=== PATIENT | female | born 1960 | race African-American/Black ===

== ENCOUNTER 2019-01-27 09:08 | Inpatient (IN) ==
[2019-01-27] MEDS ORDERED: ERGOCALCIFEROL 50,000 UNIT CAPSULE PO SCH (17:30)
[2019-01-27 18:20] LABS: Basophils # 0.1 10*3/uL (0.0-0.2); Basophils % 0.4 % (0.0-0.8); Eosinophils # 0.1 10*3/uL (0.0-0.87); Eosinophils % 1.2 % (0.00-10.9); Hematocrit 36.1 VOL% (35.7-47.0); Hemoglobin 11.1 GM/DL (12.0-16.0); Immature Granulocytes % 0.6 %; Immature Granulocytes Absolute 0.07 #; Lymphocytes % 17.6 % (21.3-54.2); Mean Corpuscular HGB Conc 30.7 GM/DL (32-36); Mean Corpuscular Volume 89.1 FL (87-102); Mean Platelet Volume 10.2 FL (9.6-12.0); Neutrophils % 71.2 % (38.7-73.9); Platelet Count 449 T/CUMM (130-400); Red Blood Count 4.05 MC/CUMM (3.8-5.5); Red Cell Distribution Width 16.1 % (9.3-17.3); White Blood Count 11.2 T/CUMM (4-12)
[2019-01-27 18:40] LABS: Alanine Aminotransferase 14 U/L (13-56); Albumin 3.6 G/DL (3.4-5.0); Alkaline Phosphatase 156 U/L (45-117); Aspartate Amino Transferase 14 U/L (0-37); Bilirubin,Total < 0.39 MG/DL (0.2-1.0); Blood Urea Nitrogen 17 MG/DL (7-18); Calcium 9.4 MG/DL (8.5-10.1); Glucose 112 MG/DL (74-106); Osmolality,Calculated 275.8 MOS/KG (273-304); Total Protein 8.2 G/DL (6.4-8.3)
[2019-01-27] MEDS ORDERED: FUROSEMIDE 40 MG TABLET PO SCH (21:00)
[2019-01-27] MEDS ORDERED: POTASSIUM CHLORIDE 20 MEQ TABLET PO ONE (21:00)
[2019-01-27] MEDS: ALLOPURINOL 100 MG TABLET PO SCH (22:17)
[2019-01-27] MEDS: ATORVASTATIN 40 MG TABLET PO SCH (22:17)
[2019-01-27] MEDS: CHLORHEXIDINE 0.12% ORAL RINSE 60 ML BOTTLE SWISH/SPIT SCH (22:17)
[2019-01-27] MEDS: GABAPENTIN 300 MG CAPSULE PO SCH (22:17)
[2019-01-27] MEDS: NITROFURANTOIN MACRO/MONO 100 MG CAPSULE PO SCH (22:17)
[2019-01-27] MEDS: traZODone 50 MG TABLET PO SCH (22:17)
[2019-01-27] MEDS: BUDESONIDE/FORMOTEROL 160-4.5 INHALER 6 GM INH SCH (22:39)
[2019-01-27] MEDS: CHLORHEXIDINE 4% SOLN 118 ML BOTTLE TOP SCH (22:40)
[2019-01-28 03:39] LABS: Basophils # 0.1 10*3/uL (0.0-0.2); Basophils % 0.5 % (0.0-0.8); Eosinophils # 0.1 10*3/uL (0.0-0.87); Eosinophils % 1.2 % (0.00-10.9); Hematocrit 36.9 VOL% (35.7-47.0); Hemoglobin 11.9 GM/DL (12.0-16.0); Immature Granulocytes % 0.3 %; Immature Granulocytes Absolute 0.03 #; Lymphocytes # 2.1 10*3/uL (1.4-4.0); Lymphocytes % 23.3 % (21.3-54.2); Mean Corpuscular HGB Conc 32.2 GM/DL (32-36); Mean Corpuscular Volume 87.4 FL (87-102); Mean Platelet Volume 10.6 FL (9.6-12.0); Monocytes % 8.8 % (1.7-12.7); Neutrophils % 65.9 % (38.7-73.9); Platelet Count 431 T/CUMM (130-400); Red Blood Count 4.22 MC/CUMM (3.8-5.5); White Blood Count 9.1 T/CUMM (4-12)
[2019-01-28 04:01] LABS: Albumin 3.6 G/DL (3.4-5.0); Bilirubin,Total 0.5 MG/DL (0.2-1.0); Calcium 9.7 MG/DL (8.5-10.1); Osmolality,Calculated 274.8 MOS/KG (273-304); Total Protein 8.5 G/DL (6.4-8.3)
[2019-01-28] MEDS: hydrALAZINE 20 MG/1 ML VIAL IV PRN ×2 (06:06→15:53)
[2019-01-28] MEDS: FUROSEMIDE 40 MG TABLET PO SCH ×2 (07:38→17:36)
[2019-01-28] MEDS: amLODIPine 10 MG TABLET PO SCH (08:37)
[2019-01-28] MEDS: MONTELUKAST 10 MG TABLET PO SCH (08:37)
[2019-01-28] MEDS: GABAPENTIN 300 MG CAPSULE PO SCH ×2 (08:37→21:05)
[2019-01-28] MEDS: VENLAFAXINE XR 37.5 MG CAPSULE PO SCH (08:37)
[2019-01-28] MEDS: PANTOPRAZOLE 40 MG TABLET PO SCH (08:37)
[2019-01-28] MEDS: NITROFURANTOIN MACRO/MONO 100 MG CAPSULE PO SCH ×2 (08:37→21:05)
[2019-01-28] MEDS: CHLORHEXIDINE 4% SOLN 118 ML BOTTLE TOP SCH ×2 (08:38→14:18)
[2019-01-28] MEDS: CHLORHEXIDINE 0.12% ORAL RINSE 60 ML BOTTLE SWISH/SPIT SCH ×2 (08:38→21:05)
[2019-01-28] MEDS: ALLOPURINOL 100 MG TABLET PO SCH ×2 (08:38→21:06)
[2019-01-28] MEDS: ASPIRIN CHEW 81 MG TABLET PO SCH (08:38)
[2019-01-28] MEDS: BUDESONIDE/FORMOTEROL 160-4.5 INHALER 6 GM INH SCH ×2 (08:39→21:06)
[2019-01-28] MEDS: ENOXAPARIN 40 MG/0.4 ML SYRINGE SUBCUT SCH (11:21)
[2019-01-28] MEDS ORDERED: METOPROLOL SUCCINATE XL 50 MG TABLET PO SCH (11:30)
[2019-01-28] MEDS ORDERED: NITROGLYCERIN SL 0.4 MG TABLET SL PRN (11:39)
[2019-01-28] MEDS: LOSARTAN 25 MG TABLET PO SCH ×2 (14:16→21:05)
[2019-01-28] MEDS ORDERED: POLYETHYLENE GLYCOL POWDER 17 GM PACK PO PRN (14:40)
[2019-01-28] MEDS ORDERED: MAGNESIUM HYDROXIDE SUSP 30 ML UDCUP PO ONE (21:00)
[2019-01-28] MEDS: CARVEDILOL 3.125 MG TABLET PO SCH (21:05)
[2019-01-28] MEDS: traZODone 50 MG TABLET PO SCH (21:05)
[2019-01-28] MEDS: ATORVASTATIN 40 MG TABLET PO SCH (21:05)
[2019-01-28] MEDS: DOCUSATE SODIUM 100 MG CAPSULE PO SCH (21:05)
[2019-01-29 04:49] LABS: Basophils % 0.5 % (0.0-0.8); Eosinophils # 0.1 10*3/uL (0.0-0.87); Eosinophils % 1.1 % (0.00-10.9); Hematocrit 37.6 VOL% (35.7-47.0); Immature Granulocytes % 0.2 %; Immature Granulocytes Absolute 0.01 #; Lymphocytes # 2.5 10*3/uL (1.4-4.0); Lymphocytes % 38.2 % (21.3-54.2); Mean Corpuscular HGB Conc 31.9 GM/DL (32-36); Mean Corpuscular Volume 88.3 FL (87-102); Mean Platelet Volume 10.3 FL (9.6-12.0); Monocytes % 11.8 % (1.7-12.7); Neutrophils % 48.2 % (38.7-73.9); Platelet Count 445 T/CUMM (130-400); Red Blood Count 4.26 MC/CUMM (3.8-5.5); White Blood Count 6.6 T/CUMM (4-12)
[2019-01-29 05:05] LABS: Calcium 10.1 MG/DL (8.5-10.1); Osmolality,Calculated 281.5 MOS/KG (273-304)
[2019-01-29] MEDS: DOCUSATE SODIUM 100 MG CAPSULE PO SCH ×2 (09:04→20:55)
[2019-01-29] MEDS: MONTELUKAST 10 MG TABLET PO SCH (09:04)
[2019-01-29] MEDS: NITROFURANTOIN MACRO/MONO 100 MG CAPSULE PO SCH ×2 (09:04→20:54)
[2019-01-29] MEDS: LOSARTAN 25 MG TABLET PO SCH ×2 (09:04→20:55)
[2019-01-29] MEDS: ALLOPURINOL 100 MG TABLET PO SCH ×2 (09:04→20:54)
[2019-01-29] MEDS: GABAPENTIN 300 MG CAPSULE PO SCH ×2 (09:04→20:55)
[2019-01-29] MEDS: CARVEDILOL 3.125 MG TABLET PO SCH (09:04)
[2019-01-29] MEDS: VENLAFAXINE XR 37.5 MG CAPSULE PO SCH (09:04)
[2019-01-29] MEDS: BUDESONIDE/FORMOTEROL 160-4.5 INHALER 6 GM INH SCH ×2 (09:05→20:53)
[2019-01-29] MEDS: amLODIPine 10 MG TABLET PO SCH (09:05)
[2019-01-29] MEDS: ASPIRIN CHEW 81 MG TABLET PO SCH (09:05)
[2019-01-29] MEDS: PANTOPRAZOLE 40 MG TABLET PO SCH (09:05)
[2019-01-29] MEDS: FUROSEMIDE 40 MG TABLET PO SCH (09:05)
[2019-01-29] MEDS: CHLORHEXIDINE 0.12% ORAL RINSE 60 ML BOTTLE SWISH/SPIT SCH ×2 (09:06→20:56)
[2019-01-29] MEDS: ENOXAPARIN 40 MG/0.4 ML SYRINGE SUBCUT SCH (12:10)
[2019-01-29] MEDS: hydrALAZINE 25 MG TABLET PO SCH ×2 (12:10→20:55)
[2019-01-29] MEDS: NEBIVOLOL 5 MG TABLET PO SCH (20:54)
[2019-01-29] MEDS: ATORVASTATIN 40 MG TABLET PO SCH (20:55)
[2019-01-29] MEDS: traZODone 50 MG TABLET PO SCH (20:55)
[2019-01-30 02:20] LABS: Apearance,Urine CLEAR (Clear); Bilirubin,Urine Negative (Negative); Blood, Urine Negative (Negative); Glucose,Urine (UA) Negative (Negative); Ketones,Urine Negative (Negative); Nitrite,Urine Negative (Negative); Protein,Urine 30 MG/DL; RBC,Urine 3 /HPF (0-4); Squamous Epithelial Cell,Urine Occasional /HPF (0-10); Urine Color Yellow (Yellow); Urine Specific Gravity 1.016 (1.001-1.035); Urine Urobilinogen < 2.0 EU/DL (0.2-1.0); WBC,Urine <1 /HPF (0-6)
[2019-01-30] MEDS: GABAPENTIN 300 MG CAPSULE PO SCH ×2 (08:12→20:33)
[2019-01-30] MEDS: LOSARTAN 25 MG TABLET PO SCH ×2 (08:12→20:34)
[2019-01-30] MEDS: NEBIVOLOL 5 MG TABLET PO SCH ×2 (08:12→20:33)
[2019-01-30] MEDS: NITROFURANTOIN MACRO/MONO 100 MG CAPSULE PO SCH ×2 (08:12→20:33)
[2019-01-30] MEDS: amLODIPine 10 MG TABLET PO SCH (08:12)
[2019-01-30] MEDS: FUROSEMIDE 40 MG/5 ML UDCUP PO SCH (08:12)
[2019-01-30] MEDS: ASPIRIN CHEW 81 MG TABLET PO SCH (08:12)
[2019-01-30] MEDS: VENLAFAXINE XR 37.5 MG CAPSULE PO SCH (08:12)
[2019-01-30] MEDS: hydrALAZINE 25 MG TABLET PO SCH ×3 (08:12→20:33)
[2019-01-30] MEDS: PANTOPRAZOLE 40 MG TABLET PO SCH (08:12)
[2019-01-30] MEDS: ISOSORBIDE DINITRATE 20 MG TABLET PO SCH ×3 (08:12→20:33)
[2019-01-30] MEDS: MONTELUKAST 10 MG TABLET PO SCH (08:12)
[2019-01-30] MEDS: DOCUSATE SODIUM 100 MG CAPSULE PO SCH ×2 (08:12→20:33)
[2019-01-30] MEDS: ALLOPURINOL 100 MG TABLET PO SCH ×2 (08:12→20:33)
[2019-01-30] MEDS: BUDESONIDE/FORMOTEROL 160-4.5 INHALER 6 GM INH SCH ×2 (08:15→20:34)
[2019-01-30] MEDS: CHLORHEXIDINE 0.12% ORAL RINSE 60 ML BOTTLE SWISH/SPIT SCH ×2 (08:16→20:34)
[2019-01-30] MEDS: ENOXAPARIN 40 MG/0.4 ML SYRINGE SUBCUT SCH (10:25)
[2019-01-30] MEDS: ATORVASTATIN 40 MG TABLET PO SCH (20:34)
[2019-01-30] MEDS: traZODone 50 MG TABLET PO SCH (20:34)
[2019-01-31 05:02] LABS: Calcium 9.3 MG/DL (8.5-10.1); Osmolality,Calculated 283.4 MOS/KG (273-304)
[2019-01-31] MEDS: DOCUSATE SODIUM 100 MG CAPSULE PO SCH ×2 (08:49→21:30)
[2019-01-31] MEDS: hydrALAZINE 25 MG TABLET PO SCH ×3 (08:49→21:29)
[2019-01-31] MEDS: NITROFURANTOIN MACRO/MONO 100 MG CAPSULE PO SCH ×2 (08:49→21:29)
[2019-01-31] MEDS: amLODIPine 10 MG TABLET PO SCH (08:49)
[2019-01-31] MEDS: MONTELUKAST 10 MG TABLET PO SCH (08:49)
[2019-01-31] MEDS: LOSARTAN 25 MG TABLET PO SCH ×2 (08:50→21:30)
[2019-01-31] MEDS: FUROSEMIDE 40 MG/5 ML UDCUP PO SCH (08:50)
[2019-01-31] MEDS: ISOSORBIDE DINITRATE 20 MG TABLET PO SCH ×3 (08:50→21:30)
[2019-01-31] MEDS: BUDESONIDE/FORMOTEROL 160-4.5 INHALER 6 GM INH SCH ×2 (08:50→21:30)
[2019-01-31] MEDS: PANTOPRAZOLE 40 MG TABLET PO SCH (08:50)
[2019-01-31] MEDS: GABAPENTIN 300 MG CAPSULE PO SCH ×2 (08:50→21:30)
[2019-01-31] MEDS: ASPIRIN CHEW 81 MG TABLET PO SCH (08:50)
[2019-01-31] MEDS: ALLOPURINOL 100 MG TABLET PO SCH ×2 (08:50→21:36)
[2019-01-31] MEDS: VENLAFAXINE XR 37.5 MG CAPSULE PO SCH (08:50)
[2019-01-31] MEDS: NEBIVOLOL 5 MG TABLET PO SCH ×2 (08:50→21:30)
[2019-01-31] MEDS: CHLORHEXIDINE 0.12% ORAL RINSE 60 ML BOTTLE SWISH/SPIT SCH ×2 (08:51→21:31)
[2019-01-31] MEDS: ENOXAPARIN 40 MG/0.4 ML SYRINGE SUBCUT SCH (11:18)
[2019-01-31] MEDS: CHLORHEXIDINE 4% SOLN 118 ML BOTTLE TOP SCH ×2 (21:28→21:29)
[2019-01-31] MEDS: ATORVASTATIN 40 MG TABLET PO SCH (21:30)
[2019-01-31] MEDS: traZODone 50 MG TABLET PO SCH (21:30)
[2019-02-01 04:21] LABS: Calcium 9.2 MG/DL (8.5-10.1); Osmolality,Calculated 280.5 MOS/KG (273-304)
[2019-02-01] MEDS ORDERED: TISSUE ADHESIVE 1 EACH APPLICATOR TOP ONE (04:52)
[2019-02-01] MEDS ORDERED: PAPAVERINE 60 MG/2 ML VIAL ONE (04:52)
[2019-02-01] MEDS ORDERED: VANCOMYCIN 1,000 MG VIAL ONE (04:53)
[2019-02-01] MEDS ORDERED: LORazepam 1 MG TABLET PO ONE (05:00)
[2019-02-01] MEDS: CHLORHEXIDINE 4% SOLN 118 ML BOTTLE TOP SCH (05:03)
[2019-02-01] MEDS: hydrALAZINE 25 MG TABLET PO SCH ×2 (05:32→08:03)
[2019-02-01] MEDS: ISOSORBIDE DINITRATE 20 MG TABLET PO SCH ×2 (05:33→08:03)
[2019-02-01] MEDS: amLODIPine 10 MG TABLET PO SCH ×2 (05:33→08:03)
[2019-02-01] MEDS: LOSARTAN 25 MG TABLET PO SCH ×2 (05:33→08:03)
[2019-02-01] MEDS ORDERED: CEFUROXIME INJ 1,500 MG in SYRINGE 1 EACH IV ONE (06:00)
[2019-02-01] MEDS ORDERED: PHENYLEPHRINE DRIP 20 MG/250 ML PREMIX IV ONE (06:25)
[2019-02-01] MEDS ORDERED: HEPARIN/NACL 0.9% 2 UNITS/ML 500 ML IV ONE (06:25)
[2019-02-01] MEDS ORDERED: MIDAZOLAM 10 MG/2 ML VIAL ONE (06:26)
[2019-02-01] MEDS ORDERED: NITROGLYCERIN DRIP 50 MG/250 ML BOTTLE IV ONE (06:26)
[2019-02-01] MEDS ORDERED: SODIUM BICARBONATE 50 MEQ/50 ML VIAL IV ONE ×2 (07:25→10:51)
[2019-02-01] MEDS ORDERED: POTASSIUM CHLORIDE RIDER 100 ML IV ONE (07:25)
[2019-02-01] MEDS ORDERED: CALCIUM CHLORIDE 1,000 MG/10 ML SYRINGE IV ONE (07:25)
[2019-02-01] MEDS ORDERED: NITROPRUSSIDE 50 MG/2 ML VIAL ONE (07:25)
[2019-02-01] MEDS ORDERED: PHENYLEPHRINE DRIP 40 MG/250 ML PREMIX IV ONE (07:25)
[2019-02-01] MEDS ORDERED: EPINEPHrine 1 MG/10 ML SYRINGE ONE (07:26)
[2019-02-01] MEDS ORDERED: ALBUMIN 5% 12.5 GM/250 ML VIAL IV ONE ×3 (07:26→19:20)
[2019-02-01 07:53] LABS: ABG Base Excess 0.6 MMOL/L (-2.5-2.5); ABG Oxygen Saturation 99.9 % (95-100); ABG PCO2 33.9 MM HG (35-48); ABG PH 7.459 (7.35-7.45); ABG TCO2 22.2 MMOL/L (23-27); Glucose Heart Surgery 110 MG/DL (74-106); Hematocrit Heart Surgery 27.4 PERCENT (37-47); Hemoglobin Heart Surgery 8.8 G/DL (12.0-16.0); Ionized Calcium Arterial 1.18 MMOL/L (1.21-1.46); PCO2 Patient Temp Arterial 33.9 MMHG; PH Patient Temp Arterial 7.459; Patient Temperature 37 CELCIUS; Potassium Heart/CVR 3.7 MMOL/L (3.5-5.1); Sodium Heart/CVR 137 MMOL/L (135-145)
[2019-02-01] MEDS: CHLORHEXIDINE 0.12% ORAL RINSE 60 ML BOTTLE SWISH/SPIT SCH ×2 (08:03→20:41)
[2019-02-01] MEDS: NITROFURANTOIN MACRO/MONO 100 MG CAPSULE PO SCH (08:03)
[2019-02-01] MEDS: VENLAFAXINE XR 37.5 MG CAPSULE PO SCH (08:03)
[2019-02-01] MEDS: ASPIRIN CHEW 81 MG TABLET PO SCH (08:03)
[2019-02-01] MEDS: DOCUSATE SODIUM 100 MG CAPSULE PO SCH (08:03)
[2019-02-01] MEDS: FUROSEMIDE 40 MG/5 ML UDCUP PO SCH (08:03)
[2019-02-01] MEDS: GABAPENTIN 300 MG CAPSULE PO SCH (08:03)
[2019-02-01] MEDS: NEBIVOLOL 5 MG TABLET PO SCH (08:03)
[2019-02-01] MEDS: MONTELUKAST 10 MG TABLET PO SCH (08:04)
[2019-02-01] MEDS: PANTOPRAZOLE 40 MG TABLET PO SCH (08:04)
[2019-02-01] MEDS: BUDESONIDE/FORMOTEROL 160-4.5 INHALER 6 GM INH SCH (08:04)
[2019-02-01] MEDS: ALLOPURINOL 100 MG TABLET PO SCH (08:04)
[2019-02-01 08:38] LABS: Apearance,Urine CLEAR (Clear); Bilirubin,Urine Negative (Negative); Blood, Urine Moderate mg/dL (Negative); Glucose,Urine (UA) Negative (Negative); Ketones,Urine Negative (Negative); Nitrite,Urine Negative (Negative); Protein,Urine 30 MG/DL; RBC,Urine 1 /HPF (0-4); Urine Color Yellow (Yellow); Urine Specific Gravity 1.016 (1.001-1.035); Urine Urobilinogen < 2.0 EU/DL (0.2-1.0); WBC,Urine <1 /HPF (0-6)
[2019-02-01 09:08] LABS: PCO2 Patient Temp Venous 32.8 MM HG; PH Patient Temp Venous 7.493; PO2 Patient Temp Venous 34.1 MM HG; Potassium Heart/CVR 4.7 MMOL/L (3.5-5.1); VBG Oxygen Saturation 73.9 %; VBG PCO2 34.4 MMHG (41-51); VBG PH 7.478; VBG PO2 36.5 MMHG (17-40)
[2019-02-01 09:09] LABS: Hematocrit Heart Surgery 16.5 PERCENT (37-47); Hemoglobin Heart Surgery 5.2 G/DL (12.0-16.0)
[2019-02-01 09:38] LABS: Hematocrit Heart Surgery 23.7 PERCENT (37-47); Hemoglobin Heart Surgery 7.6 G/DL (12.0-16.0); PCO2 Patient Temp Venous 30.5 MM HG; PH Patient Temp Venous 7.478; PO2 Patient Temp Venous 35.4 MM HG; Potassium Heart/CVR 4.4 MMOL/L (3.5-5.1); VBG Base Excess -0.4 MEQ/L (0-4); VBG HCO3 23.9 MEQ/L (24-28); VBG Oxygen Saturation 83.9 %; VBG PCO2 35.2 MMHG (41-51); VBG PH 7.434; VBG PO2 43.6 MMHG (17-40)
[2019-02-01 10:08] LABS: Hematocrit Heart Surgery 25.4 PERCENT (37-47); Hemoglobin Heart Surgery 8.2 G/DL (12.0-16.0); PCO2 Patient Temp Venous 28.3 MM HG; PH Patient Temp Venous 7.502; PO2 Patient Temp Venous 31.6 MM HG; Potassium Heart/CVR 4.3 MMOL/L (3.5-5.1); VBG Base Excess -0.3 MEQ/L (0-4); VBG HCO3 23.9 MEQ/L (24-28); VBG Oxygen Saturation 78.5 %; VBG PCO2 32.7 MMHG (41-51); VBG PH 7.457
[2019-02-01] MEDS ORDERED: DEXTROSE 5% KCL 20 MEQ 20 MEQ/1,000 ML BAG IV ONE (10:51)
[2019-02-01] MEDS ORDERED: methylPREDNISolone SOD SUC 1,000 MG/8 ML VIAL ONE (10:51)
[2019-02-01] MEDS ORDERED: MAGNESIUM SULFATE 5 GM/10 ML VIAL IV ONE (10:51)
[2019-02-01] MEDS ORDERED: HEPARIN 10,000 UNIT/10 ML VIAL ONE ×3 (10:51→12:20)
[2019-02-01] MEDS ORDERED: MANNITOL 100 GM/500 ML BAG IV ONE (10:51)
[2019-02-01] MEDS ORDERED: ALBUMIN 25% 25 GM/100 ML VIAL IV ONE (10:51)
[2019-02-01] MEDS ORDERED: PROTAMINE SULFATE 50 MG/5 ML VIAL IV ONE (10:52)
[2019-02-01] MEDS ORDERED: FUROSEMIDE 20 MG/2 ML VIAL ONE (10:52)
[2019-02-01] MEDS ORDERED: THROMBIN TOPICAL (RECOMBINANT) 5,000 UNIT VIAL TOP ONE (10:56)
[2019-02-01 11:03] LABS: ABG Base Excess -3.8 MMOL/L (-2.5-2.5); ABG HCO3 21.3 MMOL/L (20-26); ABG PCO2 27.4 MM HG (35-48); ABG PH 7.451 (7.35-7.45); ABG TCO2 17.4 MMOL/L (23-27); Glucose Heart Surgery 216 MG/DL (74-106); Hematocrit Heart Surgery 30.6 PERCENT (37-47); Hemoglobin Heart Surgery 9.9 G/DL (12.0-16.0); Ionized Calcium Arterial 1.39 MMOL/L (1.21-1.46); PCO2 Patient Temp Arterial 27.4 MMHG; PH Patient Temp Arterial 7.451; Patient Temperature 37 CELCIUS; Potassium Heart/CVR 3.8 MMOL/L (3.5-5.1); Sodium Heart/CVR 131 MMOL/L (135-145)
[2019-02-01] MEDS ORDERED: EPINEPHrine 1 MG/ML VIAL ONE (12:20)
[2019-02-01] MEDS ORDERED: ePHEDrine 50 MG/ML AMP ONE (12:20)
[2019-02-01] MEDS ORDERED: MINERAL OIL/PETROLATUM OPH OINT 3.5 GM TUBE ONE (12:20)
[2019-02-01] MEDS ORDERED: CALCIUM CHLORIDE 1,000 MG/10 ML VIAL IV ONE (12:20)
[2019-02-01] MEDS ORDERED: ETOMIDATE 40 MG/20 ML VIAL IV ONE (12:21)
[2019-02-01] MEDS ORDERED: LACTATED RINGERS 2,000 ML IV ONE (12:21)
[2019-02-01] MEDS ORDERED: ROCURONIUM 100 MG/10 ML VIAL IV ONE (12:21)
[2019-02-01] MEDS ORDERED: SODIUM CHLORIDE 0.9% 1,000 ML IV ONE (12:21)
[2019-02-01] MEDS ORDERED: SODIUM CHLORIDE 0.9% 250 ML IV ONE (12:21)
[2019-02-01] MEDS ORDERED: SEVOFLURANE 1 UNIT/15 MINUTE INH ONE (12:22)
[2019-02-01] MEDS ORDERED: AMINOCAPROIC ACID 5,000 MG/20 ML VIAL ONE (12:22)
[2019-02-01] MEDS: ENOXAPARIN 40 MG/0.4 ML SYRINGE SUBCUT SCH (12:26)
[2019-02-01] MEDS ORDERED: CALCIUM CHLORIDE 1,000 MG/10 ML SYRINGE IV PRN (12:33)
[2019-02-01] MEDS ORDERED: POTASSIUM CHLORIDE RIDER 10 MEQ in PREMIX 1 EACH IV PRN (12:33)
[2019-02-01] MEDS ORDERED: ACETAMINOPHEN 650 MG SUPP RECTAL PRN (12:33)
[2019-02-01] MEDS ORDERED: MAGNESIUM SULF RIDER 4 GM in PREMIX 1 EACH IV PRN (12:33)
[2019-02-01] MEDS ORDERED: CHLORHEXIDINE 4% SOLN 118 ML BOTTLE TOP PRN (12:33)
[2019-02-01] MEDS ORDERED: DEXTROSE 50% 25 GM/50 ML VIAL IV PRN ×2 (12:33)
[2019-02-01] MEDS ORDERED: INSULIN REGULAR 100 UNIT/ML IV PRN (12:33)
[2019-02-01] MEDS ORDERED: ONDANSETRON 4 MG/2 ML VIAL IV PRN (12:33)
[2019-02-01] MEDS ORDERED: SODIUM CHLORIDE 0.9% 250 ML IV PRN (12:33)
[2019-02-01] MEDS ORDERED: MIDAZOLAM 2 MG/2 ML VIAL IV PRN (12:33)
[2019-02-01 12:38] LABS: ABG Base Excess -1.7 MMOL/L (-2.5-2.5); ABG HCO3 22.9 MMOL/L (20-26); ABG Oxygen Saturation 96.6 % (95-100); ABG PCO2 41.5 MM HG (35-48); ABG PH 7.363 (7.35-7.45); ABG PO2 87.5 MM HG (80-95); Glucose Heart Surgery 170 MG/DL (74-106); Hematocrit Heart Surgery 36.4 PERCENT (37-47); Hemoglobin Heart Surgery 11.8 G/DL (12.0-16.0); Potassium Heart/CVR 3.6 MMOL/L (3.5-5.1)
[2019-02-01] MEDS ORDERED: SODIUM CHLORIDE 0.9% 1,000 ML IV PRN (12:41)
[2019-02-01] MEDS: SODIUM CHLORIDE 0.45% 1,000 ML IV SCH ×2 (12:42)
[2019-02-01 12:43] LABS: Basophils # 0.1 10*3/uL (0.0-0.2); Basophils % 0.4 % (0.0-0.8); Eosinophils % 0.2 % (0.00-10.9); Hematocrit 35.9 VOL% (35.7-47.0); Hemoglobin 11.3 GM/DL (12.0-16.0); Immature Granulocytes % 0.7 %; Lymphocytes # 0.9 10*3/uL (1.4-4.0); Lymphocytes % 6.4 % (21.3-54.2); Mean Corpuscular HGB Conc 31.5 GM/DL (32-36); Mean Corpuscular Volume 90.7 FL (87-102); Mean Platelet Volume 9.9 FL (9.6-12.0); Monocytes % 5.5 % (1.7-12.7); Neutrophils % 86.8 % (38.7-73.9); Platelet Count 318 T/CUMM (130-400); Red Blood Count 3.96 MC/CUMM (3.8-5.5); Red Cell Distribution Width 15.1 % (9.3-17.3); White Blood Count 14.3 T/CUMM (4-12)
[2019-02-01] MEDS: POTASSIUM CHLORIDE RIDER 20 MEQ in PREMIX 1 EACH IV PRN (12:43)
[2019-02-01] MEDS ORDERED: NITROGLYCERIN DRIP 50 MG/250 ML BOTTLE IV PRN (12:44)
[2019-02-01 12:48] LABS: INR 0.9; PT Patient Result 10.2 SECS; Partial Thromboplastin Time 26.8 SECS (0-40)
[2019-02-01] MEDS ORDERED: INSULIN REGULAR DRIP 100 ML IV SCH (13:00)
[2019-02-01 13:09] LABS: Blood Urea Nitrogen 18 MG/DL (7-18); Calcium 10.3 MG/DL (8.5-10.1); Glucose 167 MG/DL (74-106)
[2019-02-01] MEDS ORDERED: ASPIRIN 325 MG TABLET PO ONE (13:15)
[2019-02-01] MEDS: ALBUMIN 5% 12.5 GM in PREMIX 1 EACH IV PRN ×3 (14:07→19:21)
[2019-02-01] MEDS: CEFUROXIME INJ 1,500 MG in SYRINGE 1 EACH IV SCH (20:30)
[2019-02-01] MEDS: MORPHINE 4 MG/1 ML VIAL IV PRN (21:52)
[2019-02-02] MEDS: MORPHINE 10 MG/1 ML VIAL IV PRN ×2 (00:13→08:07)
[2019-02-02] MEDS: SODIUM CHLORIDE 0.45% 1,000 ML IV SCH ×2 (01:20→09:41)
[2019-02-02 03:11] LABS: ABG Base Excess -5.8 MMOL/L (-2.5-2.5); ABG HCO3 19.5 MMOL/L (20-26); ABG Oxygen Saturation 93.4 % (95-100); ABG PH 7.307 (7.35-7.45); ABG PO2 72.5 MM HG (80-95); ABG TCO2 18.8 MMOL/L (23-27); Glucose Heart Surgery 136 MG/DL (74-106); Hematocrit Heart Surgery 25.8 PERCENT (37-47); Hemoglobin Heart Surgery 8.3 G/DL (12.0-16.0); Potassium Heart/CVR 4.1 MMOL/L (3.5-5.1)
[2019-02-02] MEDS ORDERED: FUROSEMIDE 40 MG/4 ML VIAL IV ONE (03:15)
[2019-02-02] MEDS ORDERED: SODIUM BICARBONATE 50 MEQ/50 ML VIAL IV ONE (03:15)
[2019-02-02] MEDS: ALBUTEROL/IPRATROPIUM 3 ML NEB RESP TX SCH ×6 (03:50→23:50)
[2019-02-02 04:27] LABS: Basophils % 0.1 % (0.0-0.8); Hemoglobin 8.2 GM/DL (12.0-16.0); Immature Granulocytes % 0.6 %; Lymphocytes # 0.7 10*3/uL (1.4-4.0); Lymphocytes % 4.2 % (21.3-54.2); Mean Corpuscular HGB Conc 31.5 GM/DL (32-36); Mean Corpuscular Volume 92.5 FL (87-102); Mean Platelet Volume 10.7 FL (9.6-12.0); Neutrophils % 89.1 % (38.7-73.9); Platelet Count 233 T/CUMM (130-400); Red Blood Count 2.81 MC/CUMM (3.8-5.5); White Blood Count 17.6 T/CUMM (4-12)
[2019-02-02 04:45] LABS: Calcium 8.9 MG/DL (8.5-10.1); Osmolality,Calculated 284.4 MOS/KG (273-304)
[2019-02-02] MEDS: POTASSIUM CHLORIDE RIDER 20 MEQ in PREMIX 1 EACH IV PRN (05:04)
[2019-02-02 05:21] LABS: Lymphocytes 2 % (20-55); Platelet Estimate Adequate; Polychromasia Few; Segmented Neutrophils 96 % (50-85); Total Cells Counted 100
[2019-02-02] MEDS: MORPHINE 4 MG/1 ML VIAL IV PRN ×2 (08:07→10:49)
[2019-02-02] MEDS: FUROSEMIDE 40 MG TABLET PO SCH (08:33)
[2019-02-02] MEDS: MAGNESIUM SULF RIDER 2 GM in PREMIX 1 EACH IV PRN (08:33)
[2019-02-02] MEDS: CHLORHEXIDINE 0.12% ORAL RINSE 60 ML BOTTLE SWISH/SPIT SCH ×2 (08:33→20:08)
[2019-02-02] MEDS: CEFUROXIME INJ 1,500 MG in SYRINGE 1 EACH IV SCH ×2 (08:34→20:08)
[2019-02-02] MEDS: ASPIRIN EC 325 MG TABLET PO SCH (08:34)
[2019-02-02] MEDS: LANSOPRAZOLE ODT 30 MG TABLET PER TUBE SCH (08:34)
[2019-02-02] MEDS: CLOPIDOGREL 75 MG TABLET PO SCH (09:55)
[2019-02-02] MEDS: methylPREDNISolone SOD SUC 40 MG/1 ML VIAL IV SCH ×2 (11:53→20:07)
[2019-02-02 11:54] LABS: ABG Base Excess -3.3 MMOL/L (-2.5-2.5); ABG HCO3 21.6 MMOL/L (20-26); ABG Oxygen Saturation 93.8 % (95-100); ABG PCO2 34.1 MM HG (35-48); ABG PH 7.396 (7.35-7.45); ABG PO2 68.4 MM HG (80-95); ABG TCO2 19.3 MMOL/L (23-27); Glucose Heart Surgery 126 MG/DL (74-106); Potassium Heart/CVR 4.4 MMOL/L (3.5-5.1)
[2019-02-02 11:55] LABS: Hematocrit Heart Surgery 28.8 PERCENT (37-47); Hemoglobin Heart Surgery 9.3 G/DL (12.0-16.0)
[2019-02-02] MEDS: BUDESONIDE/FORMOTEROL 80-4.5 INHALER 6.9 GM INH SCH ×2 (12:14→20:08)
[2019-02-02] MEDS: INSULIN REGULAR 100 UNIT/ML SUBCUT SCH ×3 (17:33→23:31)
[2019-02-02] MEDS: ATORVASTATIN 40 MG TABLET PO SCH (20:07)
[2019-02-03] MEDS: ALBUTEROL/IPRATROPIUM 3 ML NEB RESP TX SCH ×6 (04:10→23:18)
[2019-02-03] MEDS: methylPREDNISolone SOD SUC 40 MG/1 ML VIAL IV SCH ×3 (04:55→20:56)
[2019-02-03] MEDS: INSULIN REGULAR 100 UNIT/ML SUBCUT SCH ×5 (04:56→20:56)
[2019-02-03 04:58] LABS: Basophils % 0.1 % (0.0-0.8); Hematocrit 29.6 VOL% (35.7-47.0); Hemoglobin 9.6 GM/DL (12.0-16.0); Immature Granulocytes % 0.9 %; Immature Granulocytes Absolute 0.19 #; Lymphocytes # 0.9 10*3/uL (1.4-4.0); Mean Corpuscular HGB Conc 32.4 GM/DL (32-36); Mean Corpuscular Volume 90.2 FL (87-102); Mean Platelet Volume 11.1 FL (9.6-12.0); Monocytes % 6.6 % (1.7-12.7); Neutrophils % 88.4 % (38.7-73.9); Platelet Count 245 T/CUMM (130-400); Red Blood Count 3.28 MC/CUMM (3.8-5.5); Red Cell Distribution Width 15.9 % (9.3-17.3); White Blood Count 21.4 T/CUMM (4-12)
[2019-02-03 05:43] LABS: Calcium 8.9 MG/DL (8.5-10.1); Osmolality,Calculated 280.8 MOS/KG (273-304)
[2019-02-03 06:04] LABS: Anisocytosis Slight; Band Neutrophils 3 % (0-10); Eosinophils 1 % (0-10); Hypochromasia 2+; Lymphocytes 4 % (20-55); Macrocytosis Slight; Platelet Estimate Normal; Polychromasia 2+; Segmented Neutrophils 85 % (50-85); Total Cells Counted 100
[2019-02-03] MEDS ORDERED: FUROSEMIDE 40 MG/4 ML VIAL IV STA (06:57)
[2019-02-03] MEDS: MORPHINE 4 MG/1 ML VIAL IV PRN ×2 (08:35→16:57)
[2019-02-03] MEDS: CARVEDILOL 3.125 MG TABLET PO SCH ×2 (09:15→20:56)
[2019-02-03] MEDS: FUROSEMIDE 40 MG TABLET PO SCH (09:16)
[2019-02-03] MEDS: CLOPIDOGREL 75 MG TABLET PO SCH (09:16)
[2019-02-03] MEDS: LANSOPRAZOLE ODT 30 MG TABLET PER TUBE SCH (09:17)
[2019-02-03] MEDS: BUDESONIDE/FORMOTEROL 80-4.5 INHALER 6.9 GM INH SCH ×2 (09:17→20:57)
[2019-02-03] MEDS: ASPIRIN EC 325 MG TABLET PO SCH (09:17)
[2019-02-03] MEDS: CHLORHEXIDINE 0.12% ORAL RINSE 60 ML BOTTLE SWISH/SPIT SCH ×2 (09:17→20:57)
[2019-02-03] MEDS ORDERED: CLOPIDOGREL 75 MG TABLET PO SCH (10:00)
[2019-02-03] MEDS ORDERED: hydrALAZINE 20 MG/1 ML VIAL ONE (10:30)
[2019-02-03] MEDS ORDERED: hydrALAZINE 20 MG/1 ML VIAL IV ONE (10:40)
[2019-02-03] MEDS ORDERED: LEVOFLOXACIN INJ 750 MG in PREMIX 1 EACH IV SCH (12:00)
[2019-02-03] MEDS ORDERED: FUROSEMIDE 40 MG/4 ML VIAL IV ONE (12:40)
[2019-02-03] MEDS: amLODIPine 10 MG TABLET PO SCH (14:29)
[2019-02-03] MEDS: ATORVASTATIN 40 MG TABLET PO SCH (20:57)
[2019-02-04] MEDS: ALBUTEROL/IPRATROPIUM 3 ML NEB RESP TX SCH ×6 (03:09→22:48)
[2019-02-04 04:38] LABS: Basophils % 0.2 % (0.0-0.8); Hematocrit 30.5 VOL% (35.7-47.0); Hemoglobin 9.5 GM/DL (12.0-16.0); Immature Granulocytes % 0.6 %; Immature Granulocytes Absolute 0.12 #; Lymphocytes # 0.5 10*3/uL (1.4-4.0); Lymphocytes % 2.9 % (21.3-54.2); Mean Corpuscular HGB Conc 31.1 GM/DL (32-36); Mean Corpuscular Volume 91.9 FL (87-102); Mean Platelet Volume 11.3 FL (9.6-12.0); Monocytes % 3.8 % (1.7-12.7); Neutrophils % 92.5 % (38.7-73.9); Platelet Count 255 T/CUMM (130-400); Red Blood Count 3.32 MC/CUMM (3.8-5.5); Red Cell Distribution Width 15.7 % (9.3-17.3); White Blood Count 18.8 T/CUMM (4-12)
[2019-02-04 04:41] LABS: Calcium 9.3 MG/DL (8.5-10.1); Osmolality,Calculated 282.7 MOS/KG (273-304)
[2019-02-04 05:13] LABS: Band Neutrophils 1 % (0-10); Lymphocytes 3 % (20-55); Segmented Neutrophils 92 % (50-85)
[2019-02-04 05:14] LABS: Hypochromasia 1+; Platelet Estimate Normal; Polychromasia Few; Total Cells Counted 100
[2019-02-04] MEDS: methylPREDNISolone SOD SUC 40 MG/1 ML VIAL IV SCH ×3 (05:35→20:51)
[2019-02-04] MEDS: ASPIRIN EC 325 MG TABLET PO SCH (08:49)
[2019-02-04] MEDS: CARVEDILOL 3.125 MG TABLET PO SCH (08:49)
[2019-02-04] MEDS: amLODIPine 10 MG TABLET PO SCH (08:49)
[2019-02-04] MEDS: CLOPIDOGREL 75 MG TABLET PO SCH (08:49)
[2019-02-04] MEDS: INSULIN REGULAR 100 UNIT/ML SUBCUT SCH ×4 (08:49→20:52)
[2019-02-04] MEDS: FUROSEMIDE 40 MG TABLET PO SCH (08:50)
[2019-02-04] MEDS: LANSOPRAZOLE ODT 30 MG TABLET PER TUBE SCH (08:50)
[2019-02-04] MEDS: CHLORHEXIDINE 0.12% ORAL RINSE 60 ML BOTTLE SWISH/SPIT SCH ×2 (08:53→20:52)
[2019-02-04] MEDS: BUDESONIDE/FORMOTEROL 80-4.5 INHALER 6.9 GM INH SCH ×2 (08:53→20:52)
[2019-02-04] MEDS: ATORVASTATIN 40 MG TABLET PO SCH (20:51)
[2019-02-04] MEDS: CARVEDILOL 6.25 MG TABLET PO SCH (20:51)
[2019-02-05] MEDS: ALBUTEROL/IPRATROPIUM 3 ML NEB RESP TX SCH ×6 (03:06→23:18)
[2019-02-05 04:36] LABS: Basophils % 0.1 % (0.0-0.8); Hematocrit 29.5 VOL% (35.7-47.0); Hemoglobin 9.3 GM/DL (12.0-16.0); Immature Granulocytes % 0.6 %; Immature Granulocytes Absolute 0.11 #; Lymphocytes # 0.6 10*3/uL (1.4-4.0); Lymphocytes % 3.2 % (21.3-54.2); Mean Corpuscular HGB Conc 31.5 GM/DL (32-36); Mean Corpuscular Volume 90.8 FL (87-102); Monocytes % 4.1 % (1.7-12.7); NRBC # 0.02 10*3/uL; Platelet Count 270 T/CUMM (130-400); Red Blood Count 3.25 MC/CUMM (3.8-5.5); Red Cell Distribution Width 15.6 % (9.3-17.3); White Blood Count 17.5 T/CUMM (4-12)
[2019-02-05] MEDS: methylPREDNISolone SOD SUC 40 MG/1 ML VIAL IV SCH ×3 (04:40→22:12)
[2019-02-05 05:00] LABS: Calcium 9.3 MG/DL (8.5-10.1); Osmolality,Calculated 287.4 MOS/KG (273-304)
[2019-02-05 06:07] LABS: Anisocytosis 1+; Lymphocytes 2 % (20-55); Segmented Neutrophils 96 % (50-85); Total Cells Counted 100
[2019-02-05 06:09] LABS: Platelet Estimate Normal; Polychromasia Slight
[2019-02-05 06:10] LABS: Microcytosis 1+
[2019-02-05] MEDS: FUROSEMIDE 40 MG TABLET PO SCH (09:22)
[2019-02-05] MEDS: LANSOPRAZOLE ODT 30 MG TABLET PER TUBE SCH (09:22)
[2019-02-05] MEDS: amLODIPine 10 MG TABLET PO SCH (09:22)
[2019-02-05] MEDS: CARVEDILOL 6.25 MG TABLET PO SCH ×2 (09:23→22:07)
[2019-02-05] MEDS: CHLORHEXIDINE 0.12% ORAL RINSE 60 ML BOTTLE SWISH/SPIT SCH ×2 (09:24→22:14)
[2019-02-05] MEDS: ASPIRIN EC 325 MG TABLET PO SCH (09:24)
[2019-02-05] MEDS: BUDESONIDE/FORMOTEROL 80-4.5 INHALER 6.9 GM INH SCH ×2 (09:24→22:13)
[2019-02-05] MEDS: CLOPIDOGREL 75 MG TABLET PO SCH (09:24)
[2019-02-05] MEDS: INSULIN REGULAR 100 UNIT/ML SUBCUT SCH ×4 (09:26→22:22)
[2019-02-05] MEDS: LEVOFLOXACIN 750 MG TABLET PO SCH (11:19)
[2019-02-05] MEDS ORDERED: LEVOFLOXACIN INJ 750 MG in PREMIX 1 EACH IV SCH (12:00)
[2019-02-05] MEDS: MORPHINE 10 MG/1 ML VIAL IV PRN (17:26)
[2019-02-05] MEDS: ATORVASTATIN 40 MG TABLET PO SCH (22:07)
[2019-02-06] MEDS: ALBUTEROL/IPRATROPIUM 3 ML NEB RESP TX SCH ×5 (02:57→19:31)
[2019-02-06] MEDS: methylPREDNISolone SOD SUC 40 MG/1 ML VIAL IV SCH ×3 (05:07→21:39)
[2019-02-06 06:18] LABS: Basophils % 0.1 % (0.0-0.8); Hematocrit 31.5 VOL% (35.7-47.0); Hemoglobin 9.9 GM/DL (12.0-16.0); Immature Granulocytes % 0.8 %; Immature Granulocytes Absolute 0.11 #; Lymphocytes # 0.7 10*3/uL (1.4-4.0); Lymphocytes % 4.8 % (21.3-54.2); Mean Corpuscular HGB Conc 31.4 GM/DL (32-36); Mean Corpuscular Volume 89.7 FL (87-102); Mean Platelet Volume 10.6 FL (9.6-12.0); Monocytes % 4.5 % (1.7-12.7); NRBC # 0.06 10*3/uL; Neutrophils % 89.8 % (38.7-73.9); Platelet Count 344 T/CUMM (130-400); Red Blood Count 3.51 MC/CUMM (3.8-5.5); Red Cell Distribution Width 15.5 % (9.3-17.3); White Blood Count 14.1 T/CUMM (4-12)
[2019-02-06 06:41] LABS: Calcium 9.2 MG/DL (8.5-10.1); Osmolality,Calculated 289.4 MOS/KG (273-304)
[2019-02-06 06:44] LABS: Anisocytosis 1+; Hypochromasia 1+; Lymphocytes 5 % (20-55); Segmented Neutrophils 91 % (50-85); Total Cells Counted 100
[2019-02-06 06:45] LABS: Platelet Estimate Adequate
[2019-02-06] MEDS: INSULIN REGULAR 100 UNIT/ML SUBCUT SCH ×4 (08:02→21:54)
[2019-02-06] MEDS ORDERED: FUROSEMIDE 40 MG/4 ML VIAL IV ONE (08:40)
[2019-02-06] MEDS: amLODIPine 10 MG TABLET PO SCH (09:13)
[2019-02-06] MEDS: FUROSEMIDE 40 MG TABLET PO SCH (09:13)
[2019-02-06] MEDS: LEVOFLOXACIN 750 MG TABLET PO SCH (09:13)
[2019-02-06] MEDS: ASPIRIN EC 325 MG TABLET PO SCH (09:13)
[2019-02-06] MEDS: CLOPIDOGREL 75 MG TABLET PO SCH (09:13)
[2019-02-06] MEDS: CARVEDILOL 6.25 MG TABLET PO SCH ×2 (09:14→21:31)
[2019-02-06] MEDS: CHLORHEXIDINE 0.12% ORAL RINSE 60 ML BOTTLE SWISH/SPIT SCH ×2 (09:14→21:39)
[2019-02-06] MEDS: LANSOPRAZOLE ODT 30 MG TABLET PER TUBE SCH (09:14)
[2019-02-06] MEDS: BUDESONIDE/FORMOTEROL 80-4.5 INHALER 6.9 GM INH SCH ×2 (09:15→21:37)
[2019-02-06] MEDS: ATORVASTATIN 40 MG TABLET PO SCH (21:30)
[2019-02-07] MEDS: ALBUTEROL/IPRATROPIUM 3 ML NEB RESP TX SCH ×7 (00:32→23:58)
[2019-02-07 05:17] LABS: Basophils % 0.1 % (0.0-0.8); Hematocrit 34.2 VOL% (35.7-47.0); Hemoglobin 10.7 GM/DL (12.0-16.0); Immature Granulocytes % 0.9 %; Immature Granulocytes Absolute 0.13 #; Lymphocytes # 0.9 10*3/uL (1.4-4.0); Lymphocytes % 5.9 % (21.3-54.2); Mean Corpuscular HGB Conc 31.3 GM/DL (32-36); Mean Corpuscular Volume 90.5 FL (87-102); Mean Platelet Volume 10.5 FL (9.6-12.0); NRBC # 0.05 10*3/uL; Neutrophils % 89.1 % (38.7-73.9); Platelet Count 366 T/CUMM (130-400); Red Blood Count 3.78 MC/CUMM (3.8-5.5); Red Cell Distribution Width 15.4 % (9.3-17.3); White Blood Count 14.3 T/CUMM (4-12)
[2019-02-07] MEDS: methylPREDNISolone SOD SUC 40 MG/1 ML VIAL IV SCH ×3 (05:35→20:38)
[2019-02-07] MEDS: INSULIN REGULAR 100 UNIT/ML SUBCUT SCH ×4 (08:40→22:02)
[2019-02-07] MEDS: amLODIPine 5 MG TABLET PO SCH (09:26)
[2019-02-07] MEDS: FUROSEMIDE 40 MG TABLET PO SCH (09:26)
[2019-02-07] MEDS: ASPIRIN EC 325 MG TABLET PO SCH (09:26)
[2019-02-07] MEDS: LEVOFLOXACIN 750 MG TABLET PO SCH (09:26)
[2019-02-07] MEDS: CLOPIDOGREL 75 MG TABLET PO SCH (09:26)
[2019-02-07] MEDS: CARVEDILOL 3.125 MG TABLET PO SCH ×2 (09:27→21:43)
[2019-02-07] MEDS: CHLORHEXIDINE 0.12% ORAL RINSE 60 ML BOTTLE SWISH/SPIT SCH ×2 (09:27→21:53)
[2019-02-07] MEDS: LOSARTAN/HCTZ 50-12.5 MG TABLET PO SCH (09:27)
[2019-02-07] MEDS: BUDESONIDE/FORMOTEROL 80-4.5 INHALER 6.9 GM INH SCH ×2 (09:27→21:53)
[2019-02-07 09:38] LABS: Osmolality,Calculated 288.5 MOS/KG (273-304)
[2019-02-07] MEDS: LANSOPRAZOLE ODT 30 MG TABLET PER TUBE SCH (11:29)
[2019-02-07] MEDS ORDERED: SIMETHICONE CHEW 125 MG TABLET PO PRN (19:47)
[2019-02-07] MEDS: ATORVASTATIN 40 MG TABLET PO SCH (21:43)
[2019-02-08] MEDS: ALBUTEROL/IPRATROPIUM 3 ML NEB RESP TX SCH ×6 (03:11→23:50)
[2019-02-08 05:34] LABS: Basophils # 0.1 10*3/uL (0.0-0.2); Basophils % 0.3 % (0.0-0.8); Hematocrit 39.3 VOL% (35.7-47.0); Hemoglobin 12.5 GM/DL (12.0-16.0); Immature Granulocytes % 1.6 %; Immature Granulocytes Absolute 0.32 #; Lymphocytes # 1.5 10*3/uL (1.4-4.0); Lymphocytes % 7.5 % (21.3-54.2); Mean Corpuscular HGB Conc 31.8 GM/DL (32-36); Mean Corpuscular Volume 89.5 FL (87-102); Mean Platelet Volume 9.9 FL (9.6-12.0); Monocytes % 6.7 % (1.7-12.7); NRBC # 0.05 10*3/uL; Neutrophils % 83.9 % (38.7-73.9); Platelet Count 401 T/CUMM (130-400); Red Blood Count 4.39 MC/CUMM (3.8-5.5); Red Cell Distribution Width 15.1 % (9.3-17.3)
[2019-02-08 05:51] LABS: Calcium 9.7 MG/DL (8.5-10.1); Osmolality,Calculated 281.8 MOS/KG (273-304)
[2019-02-08] MEDS: methylPREDNISolone SOD SUC 40 MG/1 ML VIAL IV SCH ×3 (06:21→17:20)
[2019-02-08] MEDS: CARVEDILOL 3.125 MG TABLET PO SCH ×2 (10:36→21:46)
[2019-02-08] MEDS: FUROSEMIDE 40 MG TABLET PO SCH (10:36)
[2019-02-08] MEDS: LANSOPRAZOLE ODT 30 MG TABLET PER TUBE SCH (10:36)
[2019-02-08] MEDS: CLOPIDOGREL 75 MG TABLET PO SCH (10:36)
[2019-02-08] MEDS: LEVOFLOXACIN 750 MG TABLET PO SCH (10:37)
[2019-02-08] MEDS: LOSARTAN/HCTZ 50-12.5 MG TABLET PO SCH (10:37)
[2019-02-08] MEDS: CHLORHEXIDINE 0.12% ORAL RINSE 60 ML BOTTLE SWISH/SPIT SCH ×2 (10:37→21:46)
[2019-02-08] MEDS: BUDESONIDE/FORMOTEROL 80-4.5 INHALER 6.9 GM INH SCH ×2 (10:37→21:47)
[2019-02-08] MEDS: INSULIN REGULAR 100 UNIT/ML SUBCUT SCH ×4 (10:37→21:51)
[2019-02-08] MEDS: amLODIPine 5 MG TABLET PO SCH (10:37)
[2019-02-08] MEDS: ASPIRIN EC 325 MG TABLET PO SCH (10:37)
[2019-02-08] MEDS ORDERED: SODIUM PHOSPHATE ENEMA 133 ML BOTTLE RECTAL PRN (10:46)
[2019-02-08] MEDS: BISACODYL 5 MG TABLET PO PRN (11:31)
[2019-02-08] MEDS: ATORVASTATIN 40 MG TABLET PO SCH (21:46)
[2019-02-09] MEDS: ALBUTEROL/IPRATROPIUM 3 ML NEB RESP TX SCH ×6 (03:47→23:01)
[2019-02-09 05:17] LABS: Basophils % 0.1 % (0.0-0.8); Hematocrit 33.6 VOL% (35.7-47.0); Hemoglobin 10.9 GM/DL (12.0-16.0); Immature Granulocytes % 1.6 %; Immature Granulocytes Absolute 0.31 #; Lymphocytes # 1.9 10*3/uL (1.4-4.0); Lymphocytes % 9.5 % (21.3-54.2); Mean Corpuscular HGB Conc 32.4 GM/DL (32-36); Mean Corpuscular Volume 89.6 FL (87-102); Mean Platelet Volume 10.5 FL (9.6-12.0); Monocytes % 5.8 % (1.7-12.7); Platelet Count 386 T/CUMM (130-400); Red Blood Count 3.75 MC/CUMM (3.8-5.5); Red Cell Distribution Width 15.1 % (9.3-17.3); White Blood Count 19.8 T/CUMM (4-12)
[2019-02-09 05:25] LABS: Calcium 8.7 MG/DL (8.5-10.1); Osmolality,Calculated 288.4 MOS/KG (273-304)
[2019-02-09] MEDS: methylPREDNISolone SOD SUC 40 MG/1 ML VIAL IV SCH ×2 (06:25→18:09)
[2019-02-09] MEDS: MAGNESIUM SULF RIDER 2 GM in PREMIX 1 EACH IV PRN (08:29)
[2019-02-09] MEDS: LOSARTAN/HCTZ 50-12.5 MG TABLET PO SCH (08:30)
[2019-02-09] MEDS: FUROSEMIDE 40 MG TABLET PO SCH (08:30)
[2019-02-09] MEDS: LEVOFLOXACIN 750 MG TABLET PO SCH (08:30)
[2019-02-09] MEDS: amLODIPine 5 MG TABLET PO SCH (08:30)
[2019-02-09] MEDS: ASPIRIN EC 325 MG TABLET PO SCH (08:30)
[2019-02-09] MEDS: CLOPIDOGREL 75 MG TABLET PO SCH (08:31)
[2019-02-09] MEDS: LANSOPRAZOLE ODT 30 MG TABLET PER TUBE SCH (08:31)
[2019-02-09] MEDS: CARVEDILOL 3.125 MG TABLET PO SCH ×2 (08:31→21:14)
[2019-02-09] MEDS: INSULIN REGULAR 100 UNIT/ML SUBCUT SCH ×4 (08:32→21:14)
[2019-02-09] MEDS: BUDESONIDE/FORMOTEROL 80-4.5 INHALER 6.9 GM INH SCH ×2 (08:35→21:15)
[2019-02-09] MEDS: CHLORHEXIDINE 0.12% ORAL RINSE 60 ML BOTTLE SWISH/SPIT SCH ×2 (08:35→21:15)
[2019-02-09] MEDS: POTASSIUM CHLORIDE RIDER 20 MEQ in PREMIX 1 EACH IV PRN (09:49)
[2019-02-09] MEDS ORDERED: POTASSIUM CHLORIDE 20 MEQ TABLET PO PRN (12:48)
[2019-02-09] MEDS: ATORVASTATIN 40 MG TABLET PO SCH (21:14)
[2019-02-09] MEDS: predniSONE 10 MG TABLET PO SCH (21:14)
[2019-02-10] MEDS: ALBUTEROL/IPRATROPIUM 3 ML NEB RESP TX SCH ×5 (02:51→19:49)
[2019-02-10] MEDS: INSULIN REGULAR 100 UNIT/ML SUBCUT SCH ×4 (09:10→21:55)
[2019-02-10] MEDS: predniSONE 10 MG TABLET PO SCH ×2 (09:11→21:53)
[2019-02-10] MEDS: CLOPIDOGREL 75 MG TABLET PO SCH (09:11)
[2019-02-10] MEDS: FUROSEMIDE 40 MG TABLET PO SCH (09:11)
[2019-02-10] MEDS: ASPIRIN EC 325 MG TABLET PO SCH (09:11)
[2019-02-10] MEDS: LOSARTAN/HCTZ 50-12.5 MG TABLET PO SCH (09:11)
[2019-02-10] MEDS: amLODIPine 5 MG TABLET PO SCH (09:11)
[2019-02-10] MEDS: LANSOPRAZOLE ODT 30 MG TABLET PER TUBE SCH (09:12)
[2019-02-10] MEDS: CARVEDILOL 3.125 MG TABLET PO SCH ×2 (09:12→21:52)
[2019-02-10] MEDS: CHLORHEXIDINE 0.12% ORAL RINSE 60 ML BOTTLE SWISH/SPIT SCH ×2 (09:13→21:55)
[2019-02-10] MEDS: BUDESONIDE/FORMOTEROL 80-4.5 INHALER 6.9 GM INH SCH ×2 (09:13→21:53)
[2019-02-10] MEDS: ATORVASTATIN 40 MG TABLET PO SCH (21:52)
[2019-02-11] MEDS: ALBUTEROL/IPRATROPIUM 3 ML NEB RESP TX SCH ×7 (00:26→23:35)
[2019-02-11] MEDS ORDERED: LEVOFLOXACIN 750 MG TABLET PO SCH (09:00)
[2019-02-11] MEDS: INSULIN REGULAR 100 UNIT/ML SUBCUT SCH ×4 (09:23→22:12)
[2019-02-11] MEDS: amLODIPine 5 MG TABLET PO SCH (09:32)
[2019-02-11] MEDS: FUROSEMIDE 40 MG TABLET PO SCH (09:32)
[2019-02-11] MEDS: predniSONE 10 MG TABLET PO SCH ×2 (09:32→22:10)
[2019-02-11] MEDS: CARVEDILOL 3.125 MG TABLET PO SCH ×2 (09:32→22:10)
[2019-02-11] MEDS: CLOPIDOGREL 75 MG TABLET PO SCH (09:32)
[2019-02-11] MEDS: LANSOPRAZOLE ODT 30 MG TABLET PER TUBE SCH (09:32)
[2019-02-11] MEDS: ASPIRIN EC 325 MG TABLET PO SCH (09:32)
[2019-02-11] MEDS: LOSARTAN/HCTZ 50-12.5 MG TABLET PO SCH (09:32)
[2019-02-11] MEDS: CHLORHEXIDINE 0.12% ORAL RINSE 60 ML BOTTLE SWISH/SPIT SCH ×2 (09:32→22:14)
[2019-02-11] MEDS: BUDESONIDE/FORMOTEROL 80-4.5 INHALER 6.9 GM INH SCH ×2 (09:33→22:12)
[2019-02-11] MEDS: BISACODYL 5 MG TABLET PO PRN (18:30)
[2019-02-11] MEDS: ATORVASTATIN 40 MG TABLET PO SCH (22:09)
[2019-02-12] MEDS: ALBUTEROL/IPRATROPIUM 3 ML NEB RESP TX SCH ×4 (03:25→13:59)
[2019-02-12] MEDS: INSULIN REGULAR 100 UNIT/ML SUBCUT SCH ×3 (08:38→16:03)
[2019-02-12] MEDS: ASPIRIN EC 325 MG TABLET PO SCH (08:39)
[2019-02-12] MEDS: LOSARTAN/HCTZ 50-12.5 MG TABLET PO SCH (08:39)
[2019-02-12] MEDS: amLODIPine 5 MG TABLET PO SCH (08:39)
[2019-02-12] MEDS: FUROSEMIDE 40 MG TABLET PO SCH (08:39)
[2019-02-12] MEDS: CLOPIDOGREL 75 MG TABLET PO SCH (08:39)
[2019-02-12] MEDS: predniSONE 10 MG TABLET PO SCH (08:39)
[2019-02-12] MEDS: LANSOPRAZOLE ODT 30 MG TABLET PER TUBE SCH (08:39)
[2019-02-12] MEDS: CARVEDILOL 3.125 MG TABLET PO SCH (08:39)
[2019-02-12] MEDS: CHLORHEXIDINE 0.12% ORAL RINSE 60 ML BOTTLE SWISH/SPIT SCH (08:41)
[2019-02-12] MEDS: BUDESONIDE/FORMOTEROL 80-4.5 INHALER 6.9 GM INH SCH (08:42)
[2019-02-12 12:30] VITALS: BP 144/61
== END 2019-02-12 15:48 | disposition home health service (06) | DRG 219 ==
LOC: N.TELES 12:43 → N.CVR 02-01 07:41 → N.ICU 02-03 19:19 → N.TELES 02-04 11:56
PROVIDERS: ADMIT Thoracic Surgery (Cardiothoracic Vascular Surgery); ATTEND Thoracic Surgery (Cardiothoracic Vascular Surgery)
PROC: CABGMVR (ICD-10-PCS; 2019-02-01 06:40)